=== PATIENT | male | born 1965 | race Caucasian/White ===

== ENCOUNTER → 2018-10-31 | Outpatient (CLI) | payer MEDICARE, MEDICAID ==
[~2018-10-31] MED LIST: ASPI-1159 PO; ATOR40TA70 PO; DUTA0.5C15 PO; GABA-531 PO; LISI10TA5 PO; TAMS0.4C31 PO; VENL150C2 PO
== END | disposition home or self-care (01) ==
LOC: RAD 15:26
PROVIDERS: ATTEND Surgery
DX: J44.9 Chronic obstructive pulmonary disease, unspecified (principal)
CPT/HCPCS: 71046

== ENCOUNTER 2018-11-03 05:39 | Inpatient (IN) | payer MEDICARE, MEDICAID ==
[~2018-11-03] VITALS: Ht 175.3 cm; Wt 68.0 kg
[2018-11-03] MEDS ORDERED: DUTA0.5C15 PO (05:41)
[2018-11-03] MEDS ORDERED: ASPI-1159 PO (05:41)
[2018-11-03] MEDS ORDERED: VENL150C2 PO (05:41)
[2018-11-03] MEDS ORDERED: GABA-531 PO (05:41)
[2018-11-03] MEDS ORDERED: TAMS0.4C31 PO (05:41)
[2018-11-03] MEDS ORDERED: ATOR40TA70 PO (05:41)
[2018-11-03] MEDS ORDERED: SKIN ADHESIVE 0.7 GM EA TOP ONE ×2 (05:48→05:50)
[2018-11-03] MEDS ORDERED: BUPIVACAINE HCL 0.5% (5MG/ML) 50ML ONE (05:49)
[2018-11-03] MEDS ORDERED: LEVOFLOXACIN 500MG PREMIX 100 ML IV ONE (05:49)
[2018-11-03] MEDS ORDERED: METRONIDAZOLE 500 MG PREMIX 100 ML IV ONE (05:49)
[2018-11-03] MEDS ORDERED: INDOCYANINE GREEN 25 MG VIAL IV ONE (05:49)
[2018-11-03] MEDS ORDERED: LACTATED RINGERS 1,000 ML IV SCH (06:00)
[2018-11-03 06:15] LABS: *AMPHETAMINES SCREEN URINE NEGATIVE (NEGATIVE); *BARBITURATES SCREEN URINE NEGATIVE (NEGATIVE)
[2018-11-03 06:16] LABS: *BENZODIAZEPINES SCREEN URINE NEGATIVE (NEGATIVE); *COCAINE SCREEN URINE PRESUMTIVE POSITIVE (NEGATIVE); CANNABINOID URINE SCREEN NEGATIVE (NEGATIVE); METHADONE URINE SCREEN NEGATIVE (NEGATIVE); OPIATES URINE SCREEN NEGATIVE (NEGATIVE); PHENCYCLIDINE URINE SCREEN NEGATIVE (NEGATIVE)
[2018-11-03] MEDS ORDERED: SUCCINYLCHOLINE CHLORIDE 200MG/10ML IV ONE (06:47)
[2018-11-03] MEDS ORDERED: MIDAZOLAM HCL 2 MG/2 ML VIAL ONE (06:48)
[2018-11-03] MEDS ORDERED: FENTANYL CITRATE/PF 50MCG/ML 2ML VIAL ONE ×2 (06:48→07:37)
[2018-11-03] MEDS ORDERED: ROCURONIUM BROMIDE 10MG/ML VIAL 5ML IV ONE ×2 (06:52→08:58)
[2018-11-03] MEDS ORDERED: LIDOCAINE HCL/PF 1% 10 MG/ML 5ML VIAL ONE (06:56)
[2018-11-03] MEDS ORDERED: PROPOFOL 200MG/20ML VIAL IV ONE (06:56)
[2018-11-03] MEDS ORDERED: MORPHINE SULFATE 4 MG/ML CPJ (NOT FOR IM USE) IV PRN (07:00)
[2018-11-03] MEDS ORDERED: ONDANSETRON HCL 4MG/2ML INJ ONE (07:32)
[2018-11-03] MEDS ORDERED: SODIUM CHLORIDE 0.9% 10ML VIAL ONE ×3 (07:58→08:51)
[2018-11-03] MEDS ORDERED: EPHEDRINE SULFATE 50MG/ML VIAL ONE ×2 (07:58→08:51)
[2018-11-03] MEDS ORDERED: DEXAMETHASONE 4MG/ML 1ML VIAL ONE (08:51)
[2018-11-03] MEDS ORDERED: GLYCOPYRROLATE 0.2 MG/ML 2ML VIAL ONE (09:29)
[2018-11-03] MEDS ORDERED: NEOSTIGMINE METHYLSULFATE 1MG/ML 10 ML VIAL ONE (09:29)
[2018-11-03] MEDS ORDERED: ESMOLOL HCL 10MG/ML 10ML VIAL IV ONE (09:56)
[2018-11-03] MEDS ORDERED: HYDROMORPHONE HCL/PF 2MG/ML CPJ IV PRN (10:15)
[2018-11-03 11:45] VITALS: BP 127/82
[2018-11-03] MEDS ORDERED: LISI10TA5 PO (11:48)
[2018-11-03] MEDS ORDERED: FAMOTIDINE 20MG/2ML VIAL IV SCH (12:30)
[2018-11-03] MEDS: METRONIDAZOLE 500 MG PREMIX 100 ML IV SCH ×2 (16:31→22:38)
[2018-11-03] MEDS: DEXT 5%/0.45% NACL KCL 20MEQ/L 1,000 ML IV SCH (16:32)
[2018-11-03] MEDS: HYDROMORPHONE HCL/PF 2MG/ML CPJ IV PRN (16:34)
[2018-11-03] MEDS ORDERED: LORAZEPAM 2MG/ML CPJ IV PRN (19:30)
[2018-11-03 20:00] VITALS: BP 149/92
[2018-11-04] VITALS: BP 154/100
[2018-11-04] MEDS: HYDROMORPHONE HCL/PF 2MG/ML CPJ IV PRN ×4 (02:04→22:16)
[2018-11-04 04:00] VITALS: BP 118/85
[2018-11-04] MEDS: METRONIDAZOLE 500 MG PREMIX 100 ML IV SCH (05:40)
[2018-11-04 06:00] LABS: HEMATOCRIT. 43.6 % (42.0-52.0); HEMOGLOBIN. 14.7 g/dL (14.0-18.0); MEAN CORPUSCULAR HEMOGLOBIN 30.1 pg (28.0-32.0); MEAN CORPUSCULAR VOLUME 89.4 fL (80.0-94.0); MEAN PLATELET VOLUME 8.4 fl (7.4-10.4); PLATELET 233 x1000/uL (130-400); RED BLOOD CELL COUNT 4.88 mill/uL (4.7-6.1)
[2018-11-04] MEDS ORDERED: LEVOFLOXACIN 500MG PREMIX 100 ML IV NR (07:00)
[2018-11-04 07:12] LABS: CHLORIDE 106 mEq/L (98-107)
[2018-11-04 07:56] VITALS: BP 112/78
[2018-11-04] MEDS: FAMOTIDINE 20MG/2ML VIAL IV SCH ×2 (09:04→22:13)
[2018-11-04] MEDS: DEXT 5%/0.45% NACL KCL 20MEQ/L 1,000 ML IV SCH ×2 (09:08→19:00)
[2018-11-04 10:26] LABS: PLATELET ESTIMATE NORMAL
[2018-11-04 12:00] VITALS: BP 130/87
[2018-11-04] MEDS ORDERED: LORAZEPAM 2MG/ML CPJ IV NR (13:30)
[2018-11-04 16:00] VITALS: BP 132/87
[2018-11-04 20:00] VITALS: BP 136/96
[2018-11-05] VITALS: BP 124/83
[2018-11-05 04:00] VITALS: BP 120/90
[2018-11-05] MEDS: HYDROMORPHONE HCL/PF 2MG/ML CPJ IV PRN ×2 (04:20→08:10)
[2018-11-05 08:00] VITALS: BP 144/95
[2018-11-05] MEDS: FAMOTIDINE 20MG/2ML VIAL IV SCH (08:10)
[2018-11-05 09:36] VITALS: BP 144/95
== END 2018-11-05 11:20 | disposition home or self-care (01) | DRG 330 ==
LOC: OR 05:39 → 6EST 05:40
PROVIDERS: ADMIT Surgery; ATTEND Surgery
PROC: 8E0W4CZ Robotic Assisted Procedure of Trunk Region, Percutaneous Endoscopic Approach (ICD-10-PCS; principal; 2018-11-03)
PROC: 0DBN4ZZ Excision of Sigmoid Colon, Percutaneous Endoscopic Approach (ICD-10-PCS; 2018-11-03)
PROC: 0DBP4ZZ Excision of Rectum, Percutaneous Endoscopic Approach (ICD-10-PCS; 2018-11-03)
DX: K62.3 Rectal prolapse (principal); Q43.8 Other specified congenital malformations of intestine; F14.129 Cocaine abuse with intoxication, unspecified; I10 Essential (primary) hypertension; Z95.2 Presence of prosthetic heart valve
CPT/HCPCS: 36415; 71046; 80048; 80305; 86850; 86900; 88305; 88307; 97161; J0330; J1100; J1170; J1956; J2060; J2250; J2270; J2405; J2704; J2710; J3010; J3490; Q9957